=== PATIENT | male | born 1975 | race Caucasian/White ===

== ENCOUNTER 2016-12-03 21:38 | Inpatient (IN) | payer MEDICAID ==
[~2016-12-03] VITALS: Ht 180.3 cm; Wt 84.0 kg
[~2016-12-03 21:38] MED LIST: SERT100T12 PO; TRAZ-147 PO
[2016-12-03 22:16] LABS: BASOPHILS % (AUTO) 0.3 % (0.0-2.0); EOSINOPHILS % (AUTO) 2.1 % (1.0-6.0); HEMATOCRIT 42.6 % (41-53); HEMOGLOBIN 14.3 g/dL (13.5-17.5); LYMPHOCYTES # (AUTO) 2.4 K/uL (1.0-4.8); LYMPHOCYTES % (AUTO) 32.3 % (22.0-44.0); MEAN CORPUSCULAR HEMOGLOBIN 30.5 pg (26.0-34.0); MEAN CORPUSCULAR HGB CONC 33.6 G/dL (31.0-37.0); MEAN CORPUSCULAR VOLUME 91 fL (80-100); MONOCYTES # (AUTO) 0.6 K/uL (0.1-1.0); MONOCYTES % (AUTO) 8.4 % (2.0-9.0); NEUTROPHILS # (AUTO) 4.3 K/uL (1.8-7.7); NEUTROPHILS % (AUTO) 56.9 % (40.0-70.0); PLATELET COUNT (AUTO) 261 K/uL (150-450); RED BLOOD CELL COUNT(AUTO) 4.69 MIL/uL (4.50-5.90); RED CELL DISTRIBUTION WIDTH 13.8 % (11.5-14.5); WHITE BLOOD COUNT (AUTO) 7.5 K/uL (4.5-11.0)
[2016-12-03 22:50] LABS: ANION GAP 8 mmol/L (8-16); CALCIUM, TOTAL 9.5 mg/dL (8.8-10.5); CARBON DIOXIDE 28 mmol/L (22-29); CHLORIDE 99 mmol/L (98-107); CREATININE 1.05 mg/dL (0.60-1.30); GLOMERULAR FILTR. RATE CALC > 60 mL/min (>60); POTASSIUM 4.3 mmol/L (3.5-5.1); SODIUM SERUM 135 mmol/L (136-145); UREA NITROGEN, BLOOD 17 mg/dL (7-18)
[2016-12-03 22:57] LABS: ALANINE AMINOTRANSFERASE 32 U/L (12-78); ASPARTATE AMINOTRANSFERASE 24 U/L (15-37); TOTAL PROTEIN, SERUM 7.3 g/dL (6.4-8.2)
[2016-12-03] MEDS ORDERED: ZOLPIDEM TARTRATE 10 MG TABLET PO PRN (23:15)
[2016-12-03] MEDS ORDERED: QUEtiapine FUMARATE 100 MG TABLET PO PRN (23:15)
[2016-12-03] MEDS ORDERED: LORazepam 2 MG TABLET PO PRN (23:15)
[2016-12-03 23:37] LABS: APPEARANCE,URINE CLEAR (CLEAR); GLUCOSE, URINE (UA) NEGATIVE (NEGATIVE); KETONES,URINE NEGATIVE (NEGATIVE); LEUKOCYTE ESTERASE ,URINE NEGATIVE (NEGATIVE); OCCULT BLOOD,URINE NEGATIVE (NEGATIVE); PH,URINE 5.5 (5.0-8.0); PROTEIN,URINE NEGATIVE (NEGATIVE)
[2016-12-03 23:42] LABS: ADD UA MICROSCOPIC NO
[2016-12-04] MEDS ORDERED: HALOPERIDOL 5 MG TABLET PO PRN (00:30)
[2016-12-04] MEDS ORDERED: ZOLPIDEM TARTRATE 10 MG TABLET PO PRN (00:30)
[2016-12-04 00:51] VITALS: BP 125/91
[2016-12-04] MEDS: LORazepam 2 MG TABLET PO PRN ×3 (01:03→17:56)
[2016-12-04] MEDS ORDERED: INFLUENZA VIRUS VACCINE QVS 2016-17 (3YR+)/PF 60 MCG/0.5 ML SYRINGE IM ONE (01:30)
[2016-12-04 08:05] VITALS: BP 106/74
[2016-12-04] MEDS: SERTRALINE HCL 100 MG TABLET PO SCH ×2 (11:30→12:45)
[2016-12-04 16:48] VITALS: BP 110/60
[2016-12-04] MEDS ORDERED: IBUPROFEN 600 MG TABLET PO PRN (17:45)
[2016-12-04] MEDS ORDERED: MAG HYDROX/AL HYDROX/SIMETH ES 30 ML SUSPENSION UDCUP PO PRN (17:45)
[2016-12-04] MEDS ORDERED: LOPERAMIDE HCL 2 MG CAPSULE PO PRN (17:45)
[2016-12-04] MEDS ORDERED: ALBUTEROL SULFATE HFA 90 MCG/PUFF 8 GM INHALER IH PRN (17:45)
[2016-12-04] MEDS ORDERED: CloNIDine HCL 0.1 MG TABLET PO PRN (17:45)
[2016-12-04] MEDS ORDERED: BENZOCAINE/MENTHOL LOZENGE [8 LOZENGES/PACKET] MM PRN (17:45)
[2016-12-04] MEDS ORDERED: ACETAMINOPHEN 325 MG TABLET PO PRN (17:45)
[2016-12-04] MEDS ORDERED: PETROLATUM,WHITE 71 GM JELLY TP PRN (17:45)
[2016-12-04] MEDS ORDERED: MAGNESIUM HYDROXIDE SUSPENSION 30 ML UDCUP PO PRN (17:45)
[2016-12-04] MEDS ORDERED: BACITRACIN 28.4 GM OINTMENT TP PRN (17:45)
[2016-12-04] MEDS ORDERED: ONDANSETRON HCL 4 MG TABLET PO PRN (17:45)
[2016-12-04] MEDS: CITALOPRAM HYDROBROMIDE 10 MG TABLET PO SCH (21:37)
[2016-12-04] MEDS: TraZODone HCL 100 MG TABLET PO SCH (21:37)
[2016-12-05 09:20] VITALS: BP 129/59
[2016-12-05] MEDS: SERTRALINE HCL 100 MG TABLET PO SCH (09:46)
[2016-12-05] MEDS: LORazepam 2 MG TABLET PO PRN ×2 (12:31→19:48)
[2016-12-05 16:30] VITALS: BP 131/77
[2016-12-05] MEDS: CITALOPRAM HYDROBROMIDE 10 MG TABLET PO SCH (20:49)
[2016-12-05] MEDS: TraZODone HCL 100 MG TABLET PO SCH (20:49)
[2016-12-06 08:20] VITALS: BP 127/75
[2016-12-06] MEDS: SERTRALINE HCL 100 MG TABLET PO SCH (09:16)
[2016-12-06] MEDS: LORazepam 2 MG TABLET PO PRN (16:14)
[2016-12-06 17:21] VITALS: BP 133/103
[2016-12-06] MEDS: TraZODone HCL 100 MG TABLET PO SCH (20:24)
[2016-12-06] MEDS: CITALOPRAM HYDROBROMIDE 10 MG TABLET PO SCH (20:24)
[2016-12-07 03:50] VITALS: BP 115/73
[2016-12-07] MEDS: SERTRALINE HCL 100 MG TABLET PO SCH (08:31)
[2016-12-07 08:51] VITALS: BP 129/85
[2016-12-07] MEDS: LORazepam 2 MG TABLET PO PRN ×2 (13:18→20:07)
[2016-12-07 16:40] VITALS: BP 136/88
[2016-12-07] MEDS: CITALOPRAM HYDROBROMIDE 10 MG TABLET PO SCH (20:07)
[2016-12-07] MEDS: TraZODone HCL 100 MG TABLET PO SCH (20:07)
[2016-12-08 04:54] VITALS: BP 123/82
[2016-12-08 08:39] VITALS: BP 130/89
[2016-12-08] MEDS: SERTRALINE HCL 100 MG TABLET PO SCH (10:16)
[2016-12-08] MEDS ORDERED: CITA10TA68 PO (12:15)
[2017-04-26] MEDS ORDERED: CITA20TA9 PO (18:05)
[2017-04-27] MEDS ORDERED: BUSP5TAB20 PO (12:29)
[2017-04-27] MEDS ORDERED: TRAZ-147 PO (12:30)
== END 2016-12-08 14:25 | disposition home or self-care (01) | DRG 750 ==
LOC: EMS 21:40 → 3EI 23:57
PROVIDERS: ADMIT Psychiatry & Neurology Psychiatry; ATTEND Psychiatry & Neurology Psychiatry
DX: F25.9 Schizoaffective disorder, unspecified (principal); R45.851 Suicidal ideations; F32.9 Major depressive disorder, single episode, unspecified; F41.9 Anxiety disorder, unspecified; F43.10 Post-traumatic stress disorder, unspecified; F12.90 Cannabis use, unspecified, uncomplicated; F17.200 Nicotine dependence, unspecified, uncomplicated; G47.00 Insomnia, unspecified; Z83.3 Family history of diabetes mellitus; Z79.899 Other long term (current) drug therapy; Z71.51 Drug abuse counseling and surveillance of drug abuser; Z71.6 Tobacco abuse counseling; Z28.21 Immunization not carried out because of patient refusal
CPT/HCPCS: 90471; 99285; G0480; J3535

== ENCOUNTER 2017-02-03 22:01 | Inpatient (IN) | payer MEDICAID ==
[~2017-02-03] VITALS: Ht 180.3 cm; Wt 86.5 kg
[~2017-02-03 22:01] MED LIST changes: +CITA10TA68 PO
[2017-02-03 22:20] LABS: BASOPHILS % (AUTO) 0.5 % (0.0-2.0); EOSINOPHILS % (AUTO) 1.6 % (1.0-6.0); HEMATOCRIT 42.7 % (41-53); LYMPHOCYTES # (AUTO) 2.4 K/uL (1.0-4.8); LYMPHOCYTES % (AUTO) 28.3 % (22.0-44.0); MEAN CORPUSCULAR HEMOGLOBIN 30.1 pg (26.0-34.0); MEAN CORPUSCULAR HGB CONC 32.9 G/dL (31.0-37.0); MEAN CORPUSCULAR VOLUME 92 fL (80-100); MONOCYTES # (AUTO) 0.4 K/uL (0.1-1.0); MONOCYTES % (AUTO) 5.2 % (2.0-9.0); NEUTROPHILS # (AUTO) 5.4 K/uL (1.8-7.7); NEUTROPHILS % (AUTO) 64.4 % (40.0-70.0); PLATELET COUNT (AUTO) 311 K/uL (150-450); RED BLOOD CELL COUNT(AUTO) 4.66 MIL/uL (4.50-5.90); RED CELL DISTRIBUTION WIDTH 13.5 % (11.5-14.5); WHITE BLOOD COUNT (AUTO) 8.5 K/uL (4.5-11.0)
[2017-02-03] MEDS ORDERED: VIST50 PO (22:22)
[2017-02-03] MEDS ORDERED: TRAZ150 PO (22:32)
[2017-02-03 22:36] LABS: ANION GAP 5 mmol/L (8-16); CALCIUM, TOTAL 8.9 mg/dL (8.8-10.5); CARBON DIOXIDE 30 mmol/L (22-29); CHLORIDE 106 mmol/L (98-107); CREATININE 0.95 mg/dL (0.60-1.30); GLOMERULAR FILTR. RATE CALC > 60 mL/min (>60); POTASSIUM 4.9 mmol/L (3.5-5.1); SODIUM SERUM 141 mmol/L (136-145); UREA NITROGEN, BLOOD 9 mg/dL (7-18)
[2017-02-03 22:39] LABS: ALANINE AMINOTRANSFERASE 33 U/L (12-78); ALBUMIN 3.5 g/dL (3.4-5.0); ASPARTATE AMINOTRANSFERASE 29 U/L (15-37); BILIRUBIN,TOTAL 0.5 mg/dL (0.1-1.0); TOTAL PROTEIN, SERUM 6.1 g/dL (6.4-8.2)
[2017-02-03 22:40] LABS: ACETAMINOPHEN < 2 mcg/mL (10-30)
[2017-02-03 22:47] LABS: SALICYLATE < 2.8 mg/dL (2.8-20.0)
[2017-02-04] MEDS ORDERED: ZOLPIDEM TARTRATE 10 MG TABLET PO PRN (01:30)
[2017-02-04] MEDS ORDERED: HALOPERIDOL 5 MG TABLET PO PRN (01:30)
[2017-02-04 02:37] LABS: APPEARANCE,URINE CLOUDY (CLEAR); GLUCOSE, URINE (UA) NEGATIVE (NEGATIVE); KETONES,URINE NEGATIVE (NEGATIVE); LEUKOCYTE ESTERASE ,URINE NEGATIVE (NEGATIVE); OCCULT BLOOD,URINE NEGATIVE (NEGATIVE); PH,URINE 5.5 (5.0-8.0); PROTEIN,URINE NEGATIVE (NEGATIVE)
[2017-02-04 02:50] LABS: ADD UA MICROSCOPIC NO
[2017-02-04 04:07] VITALS: BP 126/83
[2017-02-04] MEDS ORDERED: INFLUENZA VIRUS VACCINE QVS 2016-17 (3YR+)/PF 60 MCG/0.5 ML SYRINGE IM ONE (04:45)
[2017-02-04 09:43] VITALS: BP 131/77
[2017-02-04] MEDS: CITALOPRAM HYDROBROMIDE 20 MG TABLET PO SCH (11:07)
[2017-02-04] MEDS: LORazepam 2 MG TABLET PO PRN (16:17)
[2017-02-04 16:30] VITALS: BP 123/73
[2017-02-04] MEDS: TraZODone HCL 150 MG TABLET PO SCH (20:47)
[2017-02-05 09:16] VITALS: BP 121/75
[2017-02-05] MEDS: CITALOPRAM HYDROBROMIDE 20 MG TABLET PO SCH (09:48)
[2017-02-05 16:34] VITALS: BP 123/78
[2017-02-05] MEDS: LORazepam 2 MG TABLET PO PRN (18:44)
[2017-02-05] MEDS: TraZODone HCL 150 MG TABLET PO SCH (20:09)
[2017-02-06 08:00] VITALS: BP 103/74
[2017-02-06] MEDS: CITALOPRAM HYDROBROMIDE 20 MG TABLET PO SCH (09:46)
[2017-02-06] MEDS: LORazepam 2 MG TABLET PO PRN (19:15)
[2017-02-06 19:39] VITALS: BP 110/69
[2017-02-06] MEDS: TraZODone HCL 150 MG TABLET PO SCH (20:12)
[2017-02-07 08:07] VITALS: BP 118/76
[2017-02-07] MEDS: CITALOPRAM HYDROBROMIDE 20 MG TABLET PO SCH (09:47)
[2017-02-07] MEDS ORDERED: CITA10TA68 PO (14:00)
== END 2017-02-07 15:15 | disposition home or self-care (01) | DRG 751 ==
LOC: EMS 22:02 → 3EI 02-04 02:00
PROVIDERS: ADMIT Psychiatry & Neurology Child & Adolescent Psychiatry; ATTEND Psychiatry & Neurology Child & Adolescent Psychiatry
DX: F33.2 Major depressive disorder, recurrent severe without psychotic features (principal); R45.851 Suicidal ideations; F41.9 Anxiety disorder, unspecified; F12.90 Cannabis use, unspecified, uncomplicated; F43.10 Post-traumatic stress disorder, unspecified; G47.00 Insomnia, unspecified; Z71.51 Drug abuse counseling and surveillance of drug abuser; Z91.5 Personal history of self-harm; Z79.899 Other long term (current) drug therapy; Z28.21 Immunization not carried out because of patient refusal; Z83.3 Family history of diabetes mellitus; Z81.8 Family history of other mental and behavioral disorders
CPT/HCPCS: 83735; 93005; 99291; G0480; G0481

== ENCOUNTER 2017-04-05 20:23 | Inpatient (IN) | payer MEDICAID ==
[~2017-04-05] VITALS: Ht 180.3 cm; Wt 84.0 kg
[~2017-04-05 20:23] MED LIST changes: -SERT100T12 PO; -TRAZ-147 PO; +TRAZ150 PO
[2017-04-05 21:01] LABS: BASOPHILS % (AUTO) 0.4 % (0.0-2.0); EOSINOPHILS % (AUTO) 1.2 % (1.0-6.0); HEMATOCRIT 47.9 % (41-53); HEMOGLOBIN 15.5 g/dL (13.5-17.5); LYMPHOCYTES # (AUTO) 2.4 K/uL (1.0-4.8); LYMPHOCYTES % (AUTO) 29.1 % (22.0-44.0); MEAN CORPUSCULAR HEMOGLOBIN 29.8 pg (26.0-34.0); MEAN CORPUSCULAR HGB CONC 32.4 G/dL (31.0-37.0); MEAN CORPUSCULAR VOLUME 92 fL (80-100); MONOCYTES # (AUTO) 0.5 K/uL (0.1-1.0); MONOCYTES % (AUTO) 6.5 % (2.0-9.0); NEUTROPHILS # (AUTO) 5.1 K/uL (1.8-7.7); NEUTROPHILS % (AUTO) 62.8 % (40.0-70.0); PLATELET COUNT (AUTO) 276 K/uL (150-450); RED BLOOD CELL COUNT(AUTO) 5.22 MIL/uL (4.50-5.90); RED CELL DISTRIBUTION WIDTH 13.9 % (11.5-14.5); WHITE BLOOD COUNT (AUTO) 8.1 K/uL (4.5-11.0)
[2017-04-05 21:11] LABS: ANION GAP 4 mmol/L (8-16); CALCIUM, TOTAL 8.5 mg/dL (8.8-10.5); CARBON DIOXIDE 33 mmol/L (22-29); CHLORIDE 103 mmol/L (98-107); CREATININE 1.19 mg/dL (0.60-1.30); GLOMERULAR FILTR. RATE CALC > 60 mL/min (>60); POTASSIUM 4.7 mmol/L (3.5-5.1); SODIUM SERUM 140 mmol/L (136-145); UREA NITROGEN, BLOOD 12 mg/dL (7-18)
[2017-04-05 21:19] LABS: ALANINE AMINOTRANSFERASE 28 U/L (12-78); ALBUMIN 3.5 g/dL (3.4-5.0); ASPARTATE AMINOTRANSFERASE 18 U/L (15-37); BILIRUBIN,TOTAL 0.6 mg/dL (0.1-1.0); TOTAL PROTEIN, SERUM 5.8 g/dL (6.4-8.2)
[2017-04-06] MEDS ORDERED: LORazepam 2 MG TABLET PO ONE (01:45)
[2017-04-06] MEDS ORDERED: DiphenhydrAMINE HCL 25 MG CAPSULE PO ONE (01:45)
[2017-04-06] MEDS ORDERED: HALOPERIDOL 5 MG TABLET PO PRN (02:30)
[2017-04-06] MEDS ORDERED: ZOLPIDEM TARTRATE 10 MG TABLET PO PRN (02:30)
[2017-04-06 05:38] VITALS: BP 122/67
[2017-04-06 08:37] VITALS: BP 111/61
[2017-04-06] MEDS: CITALOPRAM HYDROBROMIDE 20 MG TABLET PO SCH (12:28)
[2017-04-06 16:11] VITALS: BP 130/75
[2017-04-06] MEDS: LORazepam 2 MG TABLET PO PRN (17:42)
[2017-04-06] MEDS: TraZODone HCL 150 MG TABLET PO SCH (20:37)
[2017-04-07 00:09] VITALS: BP 105/66
[2017-04-07 08:29] VITALS: BP 121/77
[2017-04-07] MEDS: CITALOPRAM HYDROBROMIDE 20 MG TABLET PO SCH (09:43)
[2017-04-07 09:48] VITALS: BP 121/72
[2017-04-07 16:00] VITALS: BP 118/75
[2017-04-07] MEDS: LORazepam 2 MG TABLET PO PRN (17:12)
[2017-04-07] MEDS: TraZODone HCL 150 MG TABLET PO SCH (21:05)
[2017-04-08 06:40] VITALS: BP 100/59
[2017-04-08 08:34] VITALS: BP 120/75
[2017-04-08] MEDS: CITALOPRAM HYDROBROMIDE 20 MG TABLET PO SCH (09:25)
[2017-04-08] MEDS: LORazepam 2 MG TABLET PO PRN ×2 (12:10→20:12)
[2017-04-08 16:25] VITALS: BP 110/63
[2017-04-08] MEDS: TraZODone HCL 150 MG TABLET PO SCH (20:12)
[2017-04-09 06:34] VITALS: BP 100/61
[2017-04-09 08:17] VITALS: BP 107/70
[2017-04-09] MEDS: CITALOPRAM HYDROBROMIDE 20 MG TABLET PO SCH (08:39)
[2017-04-09 08:41] LABS: ALANINE AMINOTRANSFERASE 26 U/L (12-78); ALBUMIN 3.6 g/dL (3.4-5.0); ANION GAP 4 mmol/L (8-16); ASPARTATE AMINOTRANSFERASE 16 U/L (15-37); BILIRUBIN,TOTAL 0.5 mg/dL (0.1-1.0); CALCIUM, TOTAL 8.8 mg/dL (8.8-10.5); CARBON DIOXIDE 32 mmol/L (22-29); CHLORIDE 105 mmol/L (98-107); CREATININE 1.01 mg/dL (0.60-1.30); GLOMERULAR FILTR. RATE CALC > 60 mL/min (>60); POTASSIUM 4.5 mmol/L (3.5-5.1); SODIUM SERUM 141 mmol/L (136-145); THYROID STIMULATING HORMONE 2.65 uIU/mL (0.36-3.74); TOTAL PROTEIN, SERUM 6.3 g/dL (6.4-8.2); UREA NITROGEN, BLOOD 13 mg/dL (7-18)
[2017-04-09] MEDS: LORazepam 2 MG TABLET PO PRN (14:11)
[2017-04-09 16:23] VITALS: BP 126/71
[2017-04-09] MEDS: TraZODone HCL 150 MG TABLET PO SCH (20:44)
[2017-04-10 06:30] VITALS: BP 110/63
[2017-04-10] MEDS: CITALOPRAM HYDROBROMIDE 20 MG TABLET PO SCH (08:20)
[2017-04-10 08:36] VITALS: BP 109/70
[2017-04-10] MEDS: LORazepam 2 MG TABLET PO PRN (14:24)
[2017-04-10 16:16] VITALS: BP 122/68
[2017-04-10] MEDS: TraZODone HCL 150 MG TABLET PO SCH (20:20)
[2017-04-11 00:48] VITALS: BP 111/65
[2017-04-11] MEDS: CITALOPRAM HYDROBROMIDE 20 MG TABLET PO SCH (08:06)
[2017-04-11 08:44] VITALS: BP 105/63
[2017-04-26] MEDS ORDERED: CITA20TA9 PO (18:05)
[2017-04-27] MEDS ORDERED: BUSP5TAB20 PO (12:29)
[2017-04-27] MEDS ORDERED: TRAZ-147 PO (12:30)
== END 2017-04-11 15:15 | disposition home or self-care (01) | DRG 751 ==
LOC: EMS 20:25 → B2S 04-06 03:47
PROVIDERS: ADMIT Psychiatry & Neurology Child & Adolescent Psychiatry; ATTEND Psychiatry & Neurology Child & Adolescent Psychiatry
DX: F33.2 Major depressive disorder, recurrent severe without psychotic features (principal); E46 Unspecified protein-calorie malnutrition; F12.20 Cannabis dependence, uncomplicated; Z68.25 Body mass index [BMI] 25.0-25.9, adult
CPT/HCPCS: 84439; 84443; 99285; G0480

== ENCOUNTER 2017-07-02 21:33 | Inpatient (IN) | payer MEDICAID ==
[~2017-07-02] VITALS: Ht 185.4 cm; Wt 84.5 kg
[~2017-07-02 21:33] MED LIST changes: -CITA10TA68 PO; +CITA20TA9 PO; +TRAZ-147 PO; -TRAZ150 PO
[2017-07-02 22:28] LABS: BASOPHILS % (AUTO) 0.3 % (0.0-2.0); EOSINOPHILS % (AUTO) 1.8 % (1.0-6.0); HEMATOCRIT 43.6 % (41-53); HEMOGLOBIN 14.4 g/dL (13.5-17.5); LYMPHOCYTES % (AUTO) 26.2 % (22.0-44.0); MEAN CORPUSCULAR HEMOGLOBIN 30.4 pg (26.0-34.0); MEAN CORPUSCULAR HGB CONC 33.1 G/dL (31.0-37.0); MEAN CORPUSCULAR VOLUME 92 fL (80-100); MONOCYTES # (AUTO) 0.5 K/uL (0.1-1.0); MONOCYTES % (AUTO) 6.1 % (2.0-9.0); NEUTROPHILS # (AUTO) 5.1 K/uL (1.8-7.7); NEUTROPHILS % (AUTO) 65.6 % (40.0-70.0); PLATELET COUNT (AUTO) 272 K/uL (150-450); RED BLOOD CELL COUNT(AUTO) 4.74 MIL/uL (4.50-5.90); RED CELL DISTRIBUTION WIDTH 13.7 % (11.5-14.5); WHITE BLOOD COUNT (AUTO) 7.7 K/uL (4.5-11.0)
[2017-07-02 22:44] LABS: ANION GAP 3 mmol/L (8-16); CALCIUM, TOTAL 9.1 mg/dL (8.8-10.5); CARBON DIOXIDE 31 mmol/L (22-29); CHLORIDE 104 mmol/L (98-107); CREATININE 0.98 mg/dL (0.60-1.30); GLOMERULAR FILTR. RATE CALC > 60 mL/min (>60); POTASSIUM 4.7 mmol/L (3.5-5.1); SODIUM SERUM 138 mmol/L (136-145); UREA NITROGEN, BLOOD 11 mg/dL (7-18)
[2017-07-02 22:49] LABS: ALANINE AMINOTRANSFERASE 28 U/L (12-78); ALBUMIN 3.5 g/dL (3.4-5.0); ASPARTATE AMINOTRANSFERASE 20 U/L (15-37); BILIRUBIN,TOTAL 0.7 mg/dL (0.1-1.0); TOTAL PROTEIN, SERUM 6.1 g/dL (6.4-8.2)
[2017-07-03] MEDS ORDERED: LORazepam 2 MG TABLET PO ONE (01:30)
[2017-07-03 02:12] VITALS: BP 132/75
[2017-07-03] MEDS ORDERED: HALOPERIDOL 5 MG TABLET PO PRN (02:15)
[2017-07-03] MEDS ORDERED: ZOLPIDEM TARTRATE 10 MG TABLET PO PRN (02:15)
[2017-07-03 04:38] LABS: APPEARANCE,URINE CLEAR (CLEAR); GLUCOSE, URINE (UA) NEGATIVE (NEGATIVE); KETONES,URINE TRACE mg/dL (NEGATIVE); LEUKOCYTE ESTERASE ,URINE NEGATIVE (NEGATIVE); OCCULT BLOOD,URINE NEGATIVE (NEGATIVE); PROTEIN,URINE NEGATIVE (NEGATIVE)
[2017-07-03 04:41] LABS: ADD UA MICROSCOPIC NO
[2017-07-03 05:19] LABS: CHOL/HDL RATIO 3.3 (4.2-7.3)
[2017-07-03 09:47] VITALS: BP 111/65
[2017-07-03] MEDS: CITALOPRAM HYDROBROMIDE 20 MG TABLET PO SCH (11:35)
[2017-07-03] MEDS: LORazepam 2 MG TABLET PO PRN ×3 (15:09→21:08)
[2017-07-03 19:01] VITALS: BP 123/69
[2017-07-03] MEDS: TraZODone HCL 100 MG TABLET PO SCH (21:09)
[2017-07-04] MEDS: CITALOPRAM HYDROBROMIDE 20 MG TABLET PO SCH (09:30)
[2017-07-04 10:26] VITALS: BP 109/58
[2017-07-04] MEDS: LORazepam 2 MG TABLET PO PRN ×2 (13:35→19:09)
[2017-07-04 17:37] VITALS: BP 106/63
[2017-07-04] MEDS: TraZODone HCL 100 MG TABLET PO SCH (20:16)
[2017-07-05] MEDS: CITALOPRAM HYDROBROMIDE 20 MG TABLET PO SCH (08:04)
[2017-07-05 08:30] VITALS: BP 124/87
[2017-07-05] MEDS: LORazepam 2 MG TABLET PO PRN ×2 (13:42→19:14)
[2017-07-05 17:11] VITALS: BP 118/76
[2017-07-05] MEDS: TraZODone HCL 100 MG TABLET PO SCH (20:18)
[2017-07-06] MEDS: CITALOPRAM HYDROBROMIDE 20 MG TABLET PO SCH (08:53)
[2017-07-06 10:06] VITALS: BP 129/93
== END 2017-07-06 14:48 | disposition home or self-care (01) | DRG 751 ==
LOC: EMS 21:35 → UNDOADMIN 07-03 00:30 → AHU 07-03 00:30 → 3EI 07-03 14:15
PROVIDERS: ADMIT Psychiatry & Neurology Child & Adolescent Psychiatry; ATTEND Psychiatry & Neurology Child & Adolescent Psychiatry
DX: F33.2 Major depressive disorder, recurrent severe without psychotic features (principal); R45.851 Suicidal ideations; F12.90 Cannabis use, unspecified, uncomplicated; F60.3 Borderline personality disorder
CPT/HCPCS: 87081; 99285; G0480

== ENCOUNTER 2017-09-08 18:25 | Inpatient (IN) | payer MEDICAID, OTHER, SELFPAY ==
[~2017-09-08] VITALS: Ht 180.3 cm; Wt 82.2 kg
[~2017-09-08 18:25] MED LIST changes: +VIST50 PO
[2017-09-08 19:19] LABS: BASOPHILS % (AUTO) 0.4 % (0.0-2.0); EOSINOPHILS % (AUTO) 0.2 % (1.0-6.0); HEMATOCRIT 43.4 % (41-53); HEMOGLOBIN 14.8 g/dL (13.5-17.5); LYMPHOCYTES # (AUTO) 1.2 K/uL (1.0-4.8); LYMPHOCYTES % (AUTO) 12.1 % (22.0-44.0); MEAN CORPUSCULAR HEMOGLOBIN 31.4 pg (26.0-34.0); MEAN CORPUSCULAR HGB CONC 34.2 G/dL (31.0-37.0); MEAN CORPUSCULAR VOLUME 92 fL (80-100); MONOCYTES # (AUTO) 0.5 K/uL (0.1-1.0); MONOCYTES % (AUTO) 4.4 % (2.0-9.0); NEUTROPHILS # (AUTO) 8.5 K/uL (1.8-7.7); NEUTROPHILS % (AUTO) 82.9 % (40.0-70.0); PLATELET COUNT (AUTO) 297 K/uL (150-450); RED BLOOD CELL COUNT(AUTO) 4.72 MIL/uL (4.50-5.90); RED CELL DISTRIBUTION WIDTH 13.6 % (11.5-14.5); WHITE BLOOD COUNT (AUTO) 10.3 K/uL (4.5-11.0)
[2017-09-08 19:30] LABS: ANION GAP 7 mmol/L (8-16); CALCIUM, TOTAL 9.5 mg/dL (8.8-10.5); CARBON DIOXIDE 31 mmol/L (22-29); CHLORIDE 101 mmol/L (98-107); CREATININE 0.99 mg/dL (0.60-1.30); GLOMERULAR FILTR. RATE CALC > 60 mL/min (>60); SODIUM SERUM 139 mmol/L (136-145); UREA NITROGEN, BLOOD 12 mg/dL (7-18)
[2017-09-08 19:36] LABS: ALANINE AMINOTRANSFERASE 26 U/L (12-78); ALBUMIN 4.2 g/dL (3.4-5.0); ASPARTATE AMINOTRANSFERASE 18 U/L (15-37); BILIRUBIN,TOTAL 0.6 mg/dL (0.1-1.0); TOTAL PROTEIN, SERUM 6.7 g/dL (6.4-8.2)
[2017-09-08] MEDS ORDERED: HALOPERIDOL 5 MG TABLET PO PRN (20:30)
[2017-09-08] MEDS ORDERED: ZOLPIDEM TARTRATE 10 MG TABLET PO PRN (20:30)
[2017-09-09 00:01] VITALS: BP 114/77
[2017-09-09] MEDS: LORazepam 2 MG TABLET PO PRN ×2 (00:14→14:18)
[2017-09-09] MEDS ORDERED: INFLUENZA VIRUS VACCINE QVS 2017-18 (3YR+)/PF 60 MCG/0.5 ML SYRINGE IM ONE (03:15)
[2017-09-09 08:35] VITALS: BP 117/70
[2017-09-09] MEDS ORDERED: BENZOCAINE/MENTHOL LOZENGE MM PRN (09:45)
[2017-09-09] MEDS ORDERED: CloNIDine HCL 0.1 MG TABLET PO PRN (09:45)
[2017-09-09] MEDS ORDERED: ONDANSETRON HCL 4 MG TABLET PO PRN (09:45)
[2017-09-09] MEDS ORDERED: MAG HYDROX/AL HYDROX/SIMETH ES 30 ML SUSPENSION UDCUP PO PRN (09:45)
[2017-09-09] MEDS ORDERED: LOPERAMIDE HCL 2 MG CAPSULE PO PRN (09:45)
[2017-09-09] MEDS ORDERED: MAGNESIUM HYDROXIDE SUSPENSION 30 ML UDCUP PO PRN (09:45)
[2017-09-09] MEDS ORDERED: PETROLATUM,WHITE 71 GM JELLY TP PRN (09:45)
[2017-09-09] MEDS ORDERED: BACITRACIN 28.4 GM OINTMENT TP PRN (09:45)
[2017-09-09] MEDS: MUPIROCIN CALCIUM 2% 15 GM CREAM TP SCH ×2 (09:45→16:09)
[2017-09-09] MEDS ORDERED: ACETAMINOPHEN 325 MG TABLET PO PRN (09:45)
[2017-09-09] MEDS ORDERED: ALBUTEROL SULFATE HFA 90 MCG/PUFF 8 GM INHALER IH PRN (09:45)
[2017-09-09] MEDS ORDERED: IBUPROFEN 600 MG TABLET PO PRN (09:45)
[2017-09-09] MEDS ORDERED: HydrOXYzine PAMOATE 25 MG CAPSULE PO PRN (15:45)
[2017-09-09 16:17] VITALS: BP 114/73
[2017-09-09] MEDS: TraZODone HCL 100 MG TABLET PO SCH (20:27)
[2017-09-10 01:09] VITALS: BP 113/60
[2017-09-10] MEDS: CITALOPRAM HYDROBROMIDE 20 MG TABLET PO SCH (08:56)
[2017-09-10] MEDS: MUPIROCIN CALCIUM 2% 15 GM CREAM TP SCH ×2 (08:56→16:24)
[2017-09-10 09:14] VITALS: BP 130/70
[2017-09-10] MEDS: LORazepam 2 MG TABLET PO PRN ×2 (12:56→19:23)
[2017-09-10 16:13] VITALS: BP 102/62
[2017-09-10] MEDS: TraZODone HCL 100 MG TABLET PO SCH (20:15)
[2017-09-11 01:17] VITALS: BP 103/63
[2017-09-11] MEDS: MUPIROCIN CALCIUM 2% 15 GM CREAM TP SCH ×2 (09:10→16:25)
[2017-09-11] MEDS: CITALOPRAM HYDROBROMIDE 20 MG TABLET PO SCH (09:10)
[2017-09-11 11:04] VITALS: BP 100/60
[2017-09-11 16:43] VITALS: BP 128/84
[2017-09-11] MEDS: LORazepam 2 MG TABLET PO PRN (18:27)
[2017-09-11] MEDS: TraZODone HCL 100 MG TABLET PO SCH (20:06)
[2017-09-12 01:21] VITALS: BP 105/59
[2017-09-12 08:33] VITALS: BP 117/71
[2017-09-12] MEDS: CITALOPRAM HYDROBROMIDE 20 MG TABLET PO SCH (08:49)
[2017-09-12] MEDS: MUPIROCIN CALCIUM 2% 15 GM CREAM TP SCH ×2 (08:49→16:48)
[2017-09-12] MEDS: LORazepam 2 MG TABLET PO PRN ×2 (12:38→20:45)
[2017-09-12 16:09] VITALS: BP 114/62
[2017-09-12] MEDS: TraZODone HCL 100 MG TABLET PO SCH (20:27)
[2017-09-13 04:47] VITALS: BP 116/68
[2017-09-13] MEDS: MUPIROCIN CALCIUM 2% 15 GM CREAM TP SCH ×2 (09:02→16:58)
[2017-09-13] MEDS: CITALOPRAM HYDROBROMIDE 20 MG TABLET PO SCH (09:03)
[2017-09-13 09:51] VITALS: BP 114/65
[2017-09-13] MEDS: LORazepam 2 MG TABLET PO PRN ×2 (13:58→18:06)
[2017-09-13 16:44] VITALS: BP 130/79
[2017-09-13] MEDS: TraZODone HCL 100 MG TABLET PO SCH (20:03)
[2017-09-14 06:49] VITALS: BP 116/68
[2017-09-14 08:20] VITALS: BP 121/70
[2017-09-14] MEDS: CITALOPRAM HYDROBROMIDE 20 MG TABLET PO SCH (08:54)
[2017-09-14] MEDS: MUPIROCIN CALCIUM 2% 15 GM CREAM TP SCH ×2 (08:54→16:42)
[2017-09-14] MEDS: LORazepam 2 MG TABLET PO PRN (14:51)
[2017-09-14 16:32] VITALS: BP 112/69
[2017-09-14] MEDS: TraZODone HCL 100 MG TABLET PO SCH (20:03)
[2017-09-15 01:32] VITALS: BP 103/66
[2017-09-15 08:44] VITALS: BP 108/60
[2017-09-15] MEDS: CITALOPRAM HYDROBROMIDE 20 MG TABLET PO SCH (09:36)
[2017-09-15] MEDS: MUPIROCIN CALCIUM 2% 15 GM CREAM TP SCH ×2 (09:37→17:13)
[2017-09-15] MEDS: LORazepam 2 MG TABLET PO PRN ×2 (13:45→20:11)
[2017-09-15 16:13] VITALS: BP 110/61
[2017-09-15] MEDS: TraZODone HCL 100 MG TABLET PO SCH (20:11)
[2017-09-16 00:42] VITALS: BP 105/65
[2017-09-16 08:23] VITALS: BP 116/69
[2017-09-16] MEDS: CITALOPRAM HYDROBROMIDE 20 MG TABLET PO SCH (09:34)
[2017-09-16] MEDS: MUPIROCIN CALCIUM 2% 15 GM CREAM TP SCH ×2 (09:34→16:28)
[2017-09-16] MEDS: LORazepam 2 MG TABLET PO PRN (16:27)
[2017-09-16 16:55] VITALS: BP 132/89
[2017-09-16] MEDS: TraZODone HCL 100 MG TABLET PO SCH (20:34)
[2017-09-17 00:28] VITALS: BP 104/65
[2017-09-17] MEDS: MUPIROCIN CALCIUM 2% 15 GM CREAM TP SCH ×2 (08:01→16:44)
[2017-09-17] MEDS: LORazepam 2 MG TABLET PO PRN ×2 (08:01→18:40)
[2017-09-17] MEDS: CITALOPRAM HYDROBROMIDE 20 MG TABLET PO SCH (08:01)
[2017-09-17 08:14] VITALS: BP 125/84
[2017-09-17 18:06] VITALS: BP 132/81
[2017-09-17] MEDS: TraZODone HCL 100 MG TABLET PO SCH (20:43)
[2017-09-18 04:26] VITALS: BP 105/60
[2017-09-18] MEDS: CITALOPRAM HYDROBROMIDE 20 MG TABLET PO SCH (08:02)
[2017-09-18 08:35] VITALS: BP 143/85
[2017-09-18] MEDS: MUPIROCIN CALCIUM 2% 15 GM CREAM TP SCH (09:00)
[2017-09-18] MEDS: LORazepam 2 MG TABLET PO PRN (10:47)
== END 2017-09-18 14:30 | disposition home or self-care (01) | DRG 751 ==
LOC: EMS 18:27 → B2S 22:30
PROVIDERS: ADMIT Psychiatry & Neurology Psychiatry; ATTEND Psychiatry & Neurology Psychiatry
DX: F33.2 Major depressive disorder, recurrent severe without psychotic features (principal); R45.851 Suicidal ideations; F12.90 Cannabis use, unspecified, uncomplicated; F43.10 Post-traumatic stress disorder, unspecified; G47.00 Insomnia, unspecified; R73.9 Hyperglycemia, unspecified; R03.0 Elevated blood-pressure reading, without diagnosis of hypertension; F60.3 Borderline personality disorder; Z60.2 Problems related to living alone; Z79.899 Other long term (current) drug therapy
CPT/HCPCS: 83036; 99285; G0480